=== PATIENT | female | born 1980 | race Caucasian/White ===

== ENCOUNTER 2022-10-22 05:00 | Emergency (ER) | payer SELFPAY ==
[2022-10-22] MEDS ORDERED: NO HOME MEDS (09:23)
== END 2022-10-22 05:58 | disposition left against medical advice (07) ==
LOC: ER 05:02
DX: Z00.8 Encounter for other general examination (principal); Z53.21 Procedure and treatment not carried out due to patient leaving prior to being seen by health care provider